=== PATIENT | female | born 1980 | race Caucasian/White ===

== ENCOUNTER 2017-06-05 15:58 | Emergency (ER) | payer OTHER ==
[~2017-06-05] VITALS: Ht 160 cm; Wt 60.0 kg
[~2017-06-05 15:58] MED LIST: DOXY100T PO; LORT5TAB PO; SULF1TAB47 PO
[2017-06-05 16:01] VITALS: BP 126/68; PULSE 86; RESP 14; TEMP 98.5; O2SAT 100
[2017-06-05 16:39] VITALS: BP 118/72; PULSE 94; RESP 19; TEMP 98.2; O2SAT 100
--- NOTE | 2017-06-05 17:00 | PD ---
HPI Chief Complaint: Anxiety Time Seen by Provider: 16:40 Travel History International Travel<30 days: No Contact w/Intl Traveler<30days: No Traveled to known affect area: No History of Present Illness HPI 37-year-old female presents voluntarily for psychiatric evaluation secondary to anxiety and having a panic attack for the past 2 hours. She also reports chest pain and shortness of breath that has been intermittent for the past couple days. Reports nausea and diarrhea for the past 3 days. Denies fever, cough, recent illness. She is also complaining of dysuria. Denies suicidal or homicidal ideations. Reports injecting Dilaudid 3-4 days ago. Denies other illicit drug use. Denies EtOH. Reports feeling emotional and paranoid and feels like somebody is after her. Has history of anxiety and used to take Ativan and Xanax. She has history of seizures and used to take Lamictal. Has not taken Lamictal for at least a year. Her last seizure was 5-6 months ago. No known allergies. No other medical complaints. No other modifying factors or associated signs and symptoms. PFSH Past Medical History Diminished Hearing: No Seizures: Yes Tetanus Vaccination: < 5 Years Influenza Vaccination: No ?: Not LMP: 2 WEEKS AGO Tubal Ligation: Yes Past Surgical History Surgical History: No Previous Surgery Social History Alcohol Use: No Tobacco Use: Yes Substance Use: Yes (DILAUDID) Allergies-Medications (Allergen,Severity, Reaction): Coded Allergies: No Known Allergies (Verified Adverse Reaction, Unknown, 06/05/17) Reported Meds & Prescriptions Reported Meds & Active Scripts Active Macrobid (Nitrofurantoin Monohydrate Macrocrystals) 100 Mg Capsule 100 Mg PO BID 7 Days Review of Systems Except as stated in HPI: all other systems reviewed are Neg Physical Exam Narrative GENERAL: Well-nourished, well-developed female patient, in no acute distress; sleeping comfortably in bed prior to evaluation SKIN: Warm and dry. HEAD: Atraumatic. Normocephalic. EYES: Pupils equal and round. No scleral icterus. No injection or drainage. ENT: Mucosa pink and moist. Airway patent. NECK: Trachea midline. CARDIOVASCULAR: Regular rate and rhythm. No murmur appreciated. RESPIRATORY: No accessory muscle use. Breath sounds clear and equal bilaterally. No retractions or tachypnea. GASTROINTESTINAL: Abdomen soft, non-tender, nondistended. Bowel sounds active 4 quadrants. Nonrigid. No guarding. MUSCULOSKELETAL: No obvious deformities. No clubbing. No cyanosis. No edema. NEUROLOGICAL: Awake and alert. Oriented 3. No obvious cranial nerve deficits. Motor grossly within normal limits. Normal speech. PSYCHIATRIC: Appropriate mood and affect; insight and judgment normal. Data Data Last Documented VS Vital Signs Date Time Temp Pulse Resp B/P (MAP) Pulse Ox O2 Delivery O2 Flow Rate FiO2 06/06/17 11:16 06/06/17 06:00 97.5 79 100 Room Air 06/06/17 02:43 15 Orders Orders Electrocardiogram (06/05/17 17:) Basic Metabolic Panel (Bmp) (06/05/17 17:) Ckmb (Isoenzyme) Profile (06/05/17 17:) Complete Blood Count With Diff (06/05/17 17:) Magnesium (Mg) (06/05/17 17:) Prothrombin Time / Inr (Pt) (06/05/17 17:) Act Partial Throm Time (Ptt) (06/05/17 17:) Troponin I (06/05/17 17:) Chest, Single Ap (06/05/17 17:) Ecg Monitoring (06/05/17 17:01) Iv Access Insert/Monitor (06/05/17 17:) Oximetry (06/05/17 17:) Sodium Chloride 0.9% Flush (Ns Flush) (06/05/17 17:15) Urinalysis - C+S If Indicated (06/05/17 17:) Ed Urine Pregnancytest Poc (06/05/17 17:) Psych Screen (06/05/17 17:) Drug Screen, Random Urine (06/05/17 17:) Alcohol (Ethanol) (06/05/17 17:01) Salicylates (Aspirin) (06/05/17 17:01) Tylenol (Acetaminophen) (06/05/17 17:01) Vascular Access Team Consult/P PRN (06/05/17 17:50) Vascular Poc Ultrasound (06/05/17 ) CKMB (06/05/17 18:40) CKMB% (06/05/17 18:40) Potassium Chloride (Kcl) (06/05/17 20:30) Urine Culture (06/05/17 21:05) Nitrofurantoin Monohyd Macrocr (Macrobid (06/06/17 01:45) Diet Regular Basic (06/06/17 Breakfast) Ed Discharge Order (06/06/17 10:40) Ibuprofen (Motrin) (06/06/17 10:45) Labs Laboratory Tests Test 06/05/17 18:40 06/05/17 21:05 White Blood Count 5.5 TH/MM3 Red Blood Count 4.54 MIL/MM3 Hemoglobin 12.4 GM/DL Hematocrit 36.2 % Mean Corpuscular Volume 79.8 FL Mean Corpuscular Hemoglobin 27.4 PG Mean Corpuscular Hemoglobin Concent 34.3 % Red Cell Distribution Width 13.6 % Platelet Count 213 TH/MM3 Mean Platelet Volume 6.9 FL Neutrophils (%) (Auto) 61.2 % Lymphocytes (%) (Auto) 27.4 % Monocytes (%) (Auto) 8.0 % Eosinophils (%) (Auto) 1.6 % Basophils (%) (Auto) 1.8 % Neutrophils # (Auto) 3.4 TH/MM3 Lymphocytes # (Auto) 1.5 TH/MM3 Monocytes # (Auto) 0.4 TH/MM3 Eosinophils # (Auto) 0.1 TH/MM3 Basophils # (Auto) 0.1 TH/MM3 CBC Comment DIFF FINAL Differential Comment Prothrombin Time 10.4 SEC Prothromb Time International Ratio 1.0 RATIO Activated Partial Thromboplast Time 32.1 SEC Blood Urea Nitrogen 8 MG/DL Creatinine 0.73 MG/DL Random Glucose 96 MG/DL Calcium Level 8.8 MG/DL Magnesium Level 1.9 MG/DL Sodium Level 137 MEQ/L Potassium Level 3.0 MEQ/L Chloride Level 103 MEQ/L Carbon Dioxide Level 27.6 MEQ/L Anion Gap 6 MEQ/L Estimat Glomerular Filtration Rate 91 ML/MIN Total Creatine Kinase 157 U/L Creatine Kinase MB 3.6 NG/ML Troponin I LESS THAN 0.02 NG/ML Salicylates Level 3.0 MG/DL Acetaminophen Level LESS THAN 2.0 MCG/ML Ethyl Alcohol Level LESS THAN 3 MG/DL Urine Color YELLOW Urine Turbidity HAZY Urine pH 6.5 Urine Specific [place] 1.008 Urine Protein TRACE mg/dL Urine Glucose (UA) NEG mg/dL Urine Ketones 10 mg/dL Urine Occult Blood NEG Urine Nitrite NEG Urine Bilirubin NEG Urine Urobilinogen LESS THAN 2.0 MG/DL Urine Leukocyte Esterase LARGE Urine RBC 2 /hpf Urine WBC 56 /hpf Urine Squamous Epithelial Cells 1 /hpf Urine Bacteria OCC /hpf Urine Mucus FEW /lpf Microscopic Urinalysis Comment CULTURE INDICATED Urine Opiates Screen NEG Urine Barbiturates Screen NEG Urine Amphetamines Screen POS Urine Benzodiazepines Screen NEG Urine Cocaine Screen POS Urine Cannabinoids Screen NEG MDM Medical Decision Making Medical Screen Exam Complete: Yes Emergency Medical Condition: Yes Medical Record Reviewed: Yes Differential Diagnosis Anxiety, panic attacks, nonspecific chest pain, drug-induced chest pain, medical clearance for psychiatric evaluation, malingering Narrative Course 37-year-old female presents voluntarily for psychiatric evaluation. She has history of anxiety and is complaining of a panic attack. She is complaining of chest pain and shortness of breath intermittently for the past couple days. CBC , BMP, troponin, CK-MB, magnesium, chest x-ray, EKG, tox screen, alcohol screen , urinalysis, UPT, psych screen ordered. 1938: EKG with normal sinus rhythm: No ST elevation or depression; reviewed by Dr. Linder. 1926: CBC unremarkable. Coags unremarkable. Calcium 3.0. 40 meq oral potassium ordered. Troponin less than 0.02. CK-MB 3.6. Magnesium 1.9. Chest x-ray concludes: Chest X-Ray 06/05/17 1701 Signed Impressions: Service Date/Time: May 17:19 - CONCLUSION: No acute disease. Umer Ventura MD 2100: UA and drug screen pending. Dr. Linder assumed patient care at this time. See her not e for final patient disposition. Scripts Nitrofurantoin Monohydrate Macrocrystals (Macrobid) 100 Mg Capsule 100 MG PO BID for Infection for 7 Days, #14 CAP 0 Refills Prov: Vanita Linder DO 06/06/17 Ama Napoles Jun 05, 2017 17:00
[2017-06-05] MEDS ORDERED: SODIUM CHLORIDE 0.9% FLUSH 10 ML FLUSH IVF PRN (17:15)
[2017-06-05 17:20] VITALS: BP 118/72; PULSE 94; RESP 19; TEMP 98.2; O2SAT 100
--- NOTE | 2017-06-05 17:32 | RADRPT ---
EXAM DATE/TIME: 06/05/2017 17:19 [facility] COMPARISON: No previous studies available for comparison. INDICATIONS : Chest pain MEDICAL HISTORY : Panic attacks SURGICAL HISTORY : None. ENCOUNTER: Initial ACUITY: 4 - 6 days PAIN SCORE: 2/10 LOCATION: chest FINDINGS: A single view of the chest demonstrates the lungs to be symmetrically aerated without evidence of mas s, infiltrate or effusion. The cardiomediastinal contours are unremarkable. Osseous structures are intact. CONCLUSION: No acute disease. Umer Ventura MD on June 05, 2017 at 17:29 Board Certified Radiologist. This report was verified electronically.
[2017-06-05 19:12] LABS: AUTOMATED NEUTROPHIL # 3.4 TH/MM3 (1.8-7.7); BASOPHIL # 0.1 TH/MM3 (0-0.2); BASOPHIL % 1.8 % (0.0-2.0); EOSINOPHIL # 0.1 TH/MM3 (0-0.4); EOSINOPHIL % 1.6 % (0.0-4.0); HEMATOCRIT 36.2 % (35.0-46.0); HEMO FLAGS DIFF FINAL; LYMPH % 27.4 % (9.0-44.0); LYMPHOCYTE # 1.5 TH/MM3 (1.0-4.8); MEAN CELL VOLUME 79.8 FL (80.0-100.0); MEAN CORPUSCULAR HEMOGLOBIN 27.4 PG (27.0-34.0); MEAN CORPUSCULAR HGB CONC 34.3 % (32.0-36.0); NEUT % 61.2 % (16.0-70.0); PLATELET COUNT 213 TH/MM3 (150-450); RED BLOOD COUNT 4.54 MIL/MM3 (4.00-5.30); RED CELL DISTRIBUTION WIDTH 13.6 % (11.6-17.2); WHITE BLOOD COUNT 5.5 TH/MM3 (4.0-11.0)
[2017-06-05 19:36] LABS: ANION GAP 6 MEQ/L (5-15); BICARBONATE 27.6 MEQ/L (21.0-32.0); BLOOD UREA NITROGEN 8 MG/DL (7-18); CHLORIDE 103 MEQ/L (98-107); GLOMERULAR FILTRATION RATE 91 ML/MIN (>89); MAGNESIUM 1.9 MG/DL (1.5-2.5); SODIUM (NA) 137 MEQ/L (136-145)
[2017-06-05 19:40] LABS: CREATINE KINASE 157 U/L (26-192)
[2017-06-05 19:47] LABS: ALCOHOL LESS THAN 3 MG/DL (0-5)
[2017-06-05 19:48] LABS: ACETAMINOPHEN LESS THAN 2.0 MCG/ML (10.0-30.0)
[2017-06-05 20:00] LABS: CKMB 3.6 NG/ML (0.5-3.6)
[2017-06-05 20:01] LABS: APTT (PATIENT) 32.1 SEC (24.3-30.1); PROTHROMBIN TIME - PATIENT 10.4 SEC (9.8-11.6)
[2017-06-05] MEDS ORDERED: POTASSIUM CHLORIDE 20 MEQ CONTROLLED RELEASE TAB PO ONE (20:30)
[2017-06-05 22:06] LABS: BACTERIA, URINE OCC /hpf; BLOOD, URINE NEG (NEG); COMMENT (UR) CULTURE INDICATED; CULTURE IF INDICATED CULTURE INDICATED; GLUCOSE,URINE NEG (NEG); KETONE, URINE 10 mg/dL (NEG); MUCUS URINE FEW /lpf (OCC); NITRITE,URINE NEG (NEG); PH, URINE 6.5 (5.0-8.5); SQUAMOUS EPITHELIAL CELL URINE 1 /hpf (0-5); URINE COLOR YELLOW (YELLW/STRAW)
[2017-06-06] MEDS ORDERED: MACR100C2 PO (01:37)
[2017-06-06] MEDS ORDERED: NITROFURANTOIN MONOHYD MACROCR 100 MG CAP PO ONE (01:45)
[2017-06-06 02:43] VITALS: BP 168/70; PULSE 81; RESP 15; TEMP 97.5; O2SAT 100
[2017-06-06 06:00] VITALS: BP 105/50; PULSE 79; TEMP 97.5; O2SAT 100
--- NOTE | 2017-06-06 10:39 | PD ---
Physical Exam Narrative I was asked by the psych department to discharge patient after patient was evaluated by psychiatrist. Patient was previously medically cleared by previous provider. Please see their documentation for full H&P. Patient denies any homicidal or suicidal ideations. Denies any medical concerns at this time. Data Data Last Documented VS Vital Signs Date Time Temp Pulse Resp B/P (MAP) Pulse Ox O2 Delivery O2 Flow Rate FiO2 06/06/17 11:16 06/06/17 06:00 97.5 79 100 Room Air 06/06/17 02:43 15 Orders Orders Electrocardiogram (06/05/17 17:) Basic Metabolic Panel (Bmp) (06/05/17 17:01) Ckmb (Isoenzyme) Profile (06/05/17 17:) Complete Blood Count With Diff (06/05/17:) Magnesium (Mg) (06/05/17 17:) Prothrombin Time / Inr (Pt) (06/05/17 17:) Act Partial Throm Time (Ptt) (06/05/17 17:) Troponin I (06/05/17 17:) Chest, Single Ap (06/05/17 17:) Ecg Monitoring (06/05/17 17:01) Iv Access Insert/Monitor (06/05/17 17:) Oximetry (06/05/17 17:) Sodium Chloride 0.9% Flush (Ns Flush) (06/05/17 17:15) Urinalysis - C+S If Indicated (06/05/17 17:) Ed Urine Pregnancytest Poc (06/05/17 17:01) Psych Screen (06/05/17 17:) Drug Screen, Random Urine (06/05/17 17:) Alcohol (Ethanol) (06/05/17 17:01) Salicylates (Aspirin) (06/05/17 17:01) Tylenol (Acetaminophen) (06/05/17 17:01) Vascular Access Team Consult/P PRN (06/05/17 17:50) Vascular Poc Ultrasound (06/05/17 ) CKMB (06/05/17 18:40) CKMB% (06/05/17 18:40) Potassium Chloride (Kcl) (06/05/17 20:30) Urine Culture (06/05/17 21:05) Nitrofurantoin Monohyd Macrocr (Macrobid (06/06/17 01:45) Diet Regular Basic (06/06/17 Breakfast) Ed Discharge Order (06/06/17 10:40) Ibuprofen (Motrin) (06/06/17 10:45) Diet Regular Basic (06/06/17 Lunch) Labs Laboratory Tests Test 06/05/17 18:40 06/05/17 21:05 White Blood Count 5.5 TH/MM3 Red Blood Count 4.54 MIL/MM3 Hemoglobin 12.4 GM/DL Hematocrit 36.2 % Mean Corpuscular Volume 79.8 FL Mean Corpuscular Hemoglobin 27.4 PG Mean Corpuscular Hemoglobin Concent 34.3 % Red Cell Distribution Width 13.6 % Platelet Count 213 TH/MM3 Mean Platelet Volume 6.9 FL Neutrophils (%) (Auto) 61.2 % Lymphocytes (%) (Auto) 27.4 % Monocytes (%) (Auto) 8.0 % Eosinophils (%) (Auto) 1.6 % Basophils (%) (Auto) 1.8 % Neutrophils # (Auto) 3.4 TH/MM3 Lymphocytes # (Auto) 1.5 TH/MM3 Monocytes # (Auto) 0.4 TH/MM3 Eosinophils # (Auto) 0.1 TH/MM3 Basophils # (Auto) 0.1 TH/MM3 CBC Comment DIFF FINAL Differential Comment Prothrombin Time 10.4 SEC Prothromb Time International Ratio 1.0 RATIO Activated Partial Thromboplast Time 32.1 SEC Blood Urea Nitrogen 8 MG/DL Creatinine 0.73 MG/DL Random Glucose 96 MG/DL Calcium Level 8.8 MG/DL Magnesium Level 1.9 MG/DL Sodium Level 137 MEQ/L Potassium Level 3.0 MEQ/L Chloride Level 103 MEQ/L Carbon Dioxide Level 27.6 MEQ/L Anion Gap 6 MEQ/L Estimat Glomerular Filtration Rate 91 ML/MIN Total Creatine Kinase 157 U/L Creatine Kinase MB 3.6 NG/ML Troponin I LESS THAN 0.02 NG/ML Salicylates Level 3.0 MG/DL Acetaminophen Level LESS THAN 2.0 MCG/ML Ethyl Alcohol Level LESS THAN 3 MG/DL Urine Color YELLOW Urine Turbidity HAZY Urine pH 6.5 Urine Specific [place] 1.008 Urine Protein TRACE mg/dL Urine Glucose (UA) NEG mg/dL Urine Ketones 10 mg/dL Urine Occult Blood NEG Urine Nitrite NEG Urine Bilirubin NEG Urine Urobilinogen LESS THAN 2.0 MG/DL Urine Leukocyte Esterase LARGE Urine RBC 2 /hpf Urine WBC 56 /hpf Urine Squamous Epithelial Cells 1 /hpf Urine Bacteria OCC /hpf Urine Mucus FEW /lpf Microscopic Urinalysis Comment CULTURE INDICATED Urine Opiates Screen NEG Urine Barbiturates Screen NEG Urine Amphetamines Screen POS Urine Benzodiazepines Screen NEG Urine Cocaine Screen POS Urine Cannabinoids Screen NEG MDM Supervised Visit with ELDA: No Narrative Course Patient in no obvious distress upon re-evaluation. Instructions and recommendations were detailed in discharge paperwork. Patient ambulated without difficulty out of ED at discharge. Diagnosis Primary Impression: UTI (urinary tract infection) Qualified Codes: N39.0 - Urinary tract infection, site not specified Additional Impressions: Hypokalemia Substance abuse Referrals: [facility] Patient Instructions: General Instructions, Hypokalemia (ED), Polysubstance Abuse (ED), Urinary Tract Infection in Women (ED) Additional Instruction: Follow-up with your primary care physician next week for reevaluation. Follow- up with Obed Taylor today. Take all medication as prescribed. Return to the emergency department if symptoms get worse. Med/Other Pt SpecificInfo: Prescription(s) given Scripts Nitrofurantoin Monohydrate Macrocrystals (Macrobid) 100 Mg Capsule 100 MG PO BID for Infection for 7 Days, #14 CAP 0 Refills Prov: Vanita Linder DO 06/06/17 Disposition: 01 DISCHARGE HOME Condition: Stable Guillermo Arechiga Jun 06, 2017 10:39
--- NOTE | 2017-06-06 10:41 | PD ---
History of Present Illness Chief Complaint: Anxiety Time Seen by Provider: 10:00 Travel History International Travel<30 Days: No Contact w/Intl Traveler<30days: No Known affected area: No Legal Status Legal Status: Voluntary History of Present Illness: Patient here voluntarily after presenting for panic attack. Patient admits to IV drug use with dialogue noted. She is also positive for amphetamines and cocaine. She is wanting to go to [facility] for treatment and has an appointment this morning. She denies any suicidal or homicidal ideation, plan or intent. She is verbally cierra for safety and she is competent to do so. She has no psychotic symptoms and no cognitive deficits at this time. She is somewhat tearful as she is having relationship difficulties with her boyfriend. PFSH Past Medical History Diminished Hearing: No Seizures: Yes Tetanus Vaccination: < 5 Years Influenza Vaccination: No ?: Not LMP: 2 WEEKS AGO Tubal Ligation: Yes Past Surgical History Surgical History: No Previous Surgery Psychiatric History Psychiatric History Hx Psychiatric Treatment: Patient denies a history of inpatient and outpatient psychiatric treatment. Patient's primary problem appears to be drug abuse. She does not show significant objective clinical evidence of other major mental illness at this time. History of Inpatient Treatment: No Guns or firearms in home: No Social History Hx Alcohol Use: No Hx Tobacco Use: Yes Hx Substance Use: Yes (dilaudid, meth) Substance Use Type: Amphetamines-Stimulants, Nicotine/Cigarettes, Cocaine, Other Hx of Substance Use Treatment: No Allergies-Medications (Allergen,Severity, Reaction): Coded Allergies: No Known Allergies (Verified Adverse Reaction, Unknown, 06/05/17) Reported Meds & Prescriptions Reported Meds & Active Scripts Active Macrobid (Nitrofurantoin Monohydrate Macrocrystals) 100 Mg Capsule 100 Mg PO BID 7 Days Review of Systems Psychiatric: COMPLAINS OF: Anxiety, Mood changes Except as stated in HPI: all other systems reviewed are Neg Mental Status Examination Appearance: Appropriate Consciousness: Alert Orientation: x4 Motor Activity: Normal gait Speech: Unremarkable Language: Adequate Fund of Knowledge: Adequate Attention and Concentration: Adequate Memory: Unremarkable Mood: Sad Affect: Sad Thought Process & Associations: Intact Thought Content: Appropriate Hallucination Type: None Delusion Type: None Suicidal Ideation: No Suicidal Plan: No Suicidal Intention: No Homicidal Ideation: No Homicidal Plan: No Homicidal Intention: No Insight: Adequate Judgment: Adequate MDM Medical Decision Making Medical Record Reviewed: Yes Assessment/Plan Patient interviewed at bedside. Medical record reviewed. Case discussed with upper caser Chadd. Patient wants to go voluntarily to [facility] for treatment of drug abuse. She does not meet Bland act criteria and she does not meet criteria for involuntary psychiatric hospitalization. Orders Orders Electrocardiogram (06/05/17 17:) Basic Metabolic Panel (Bmp) (06/05/17 17:) Ckmb (Isoenzyme) Profile (06/05/17 17:) Complete Blood Count With Diff (06/05/17:) Magnesium (Mg) (06/05/17 17:) Prothrombin Time / Inr (Pt) (06/05/17 17:) Act Partial Throm Time (Ptt) (06/05/17 17:) Troponin I (06/05/17 17:) Chest, Single Ap (06/05/17 17:) Ecg Monitoring (06/05/17 17:) Iv Access Insert/Monitor (06/05/17 17:) Oximetry (06/05/17 17:) Sodium Chloride 0.9% Flush (Ns Flush) (06/05/17 17:15) Urinalysis - C+S If Indicated (06/05/17 17:) Ed Urine Pregnancytest Poc (06/05/17 17:01) Psych Screen (06/05/17 17:) Drug Screen, Random Urine (06/05/17 17:01) Alcohol (Ethanol) (06/05/17 17:01) Salicylates (Aspirin) (06/05/17 17:01) Tylenol (Acetaminophen) (06/05/17 17:01) Vascular Access Team Consult/P PRN (06/05/17 17:50) Vascular Poc Ultrasound (06/05/17 ) CKMB (06/05/17 18:40) CKMB% (06/05/17 18:40) Potassium Chloride (Kcl) (06/05/17 20:30) Urine Culture (06/05/17 21:05) Nitrofurantoin Monohyd Macrocr (Macrobid (06/06/17 01:45) Diet Regular Basic (06/06/17 Breakfast) Results Vital Signs Date Time Temp Pulse Resp B/P (MAP) Pulse Ox O2 Delivery O2 Flow Rate FiO2 06/06/17 06:00 97.5 79 105/50 (68) 100 Room Air 06/06/17 02:43 97.5 81 15 168/70 (102) 100 Room Air 06/06/17 02:05 06/05/17 17:20 98.2 94 19 118/72 (87) 100 Room Air 06/05/17 16:39 18 06/05/17 16:39 98.2 94 19 118/72 (87) 100 Room Air 06/05/17 16:01 98.5 86 14 126/68 (87) 100 Laboratory Tests Test 06/05/17 18:40 06/05/17 21:05 White Blood Count 5.5 Red Blood Count 4.54 Hemoglobin 12.4 Hematocrit 36.2 Mean Corpuscular Volume 79.8 Mean Corpuscular Hemoglobin 27.4 Mean Corpuscular Hemoglobin Concent 34.3 Red Cell Distribution Width 13.6 Platelet Count 213 Mean Platelet Volume 6.9 Neutrophils (%) (Auto) 61.2 Lymphocytes (%) (Auto) 27.4 Monocytes (%) (Auto) 8.0 Eosinophils (%) (Auto) 1.6 Basophils (%) (Auto) 1.8 Neutrophils # (Auto) 3.4 Lymphocytes # (Auto) 1.5 Monocytes # (Auto) 0.4 Eosinophils # (Auto) 0.1 Basophils # (Auto) 0.1 CBC Comment DIFF FINAL Differential Comment Prothrombin Time 10.4 Prothromb Time International Ratio 1.0 Activated Partial Thromboplast Time 32.1 Blood Urea Nitrogen 8 Creatinine 0.73 Random Glucose 96 Calcium Level 8.8 Magnesium Level 1.9 Sodium Level 137 Potassium Level 3.0 Chloride Level 103 Carbon Dioxide Level 27.6 Anion Gap 6 Estimat Glomerular Filtration Rate 91 Total Creatine Kinase 157 Creatine Kinase MB 3.6 Troponin I LESS THAN 0.02 Salicylates Level 3.0 Acetaminophen Level LESS THAN 2.0 Ethyl Alcohol Level LESS THAN 3 Urine Color YELLOW Urine Turbidity HAZY Urine pH 6.5 Urine Specific [place] 1.008 Urine Protein TRACE Urine Glucose (UA) NEG Urine Ketones 10 Urine Occult Blood NEG Urine Nitrite NEG Urine Bilirubin NEG Urine Urobilinogen LESS THAN 2.0 Urine Leukocyte Esterase LARGE Urine RBC 2 Urine WBC 56 Urine Squamous Epithelial Cells 1 Urine Bacteria OCC Urine Mucus FEW Microscopic Urinalysis Comment CULTURE INDICATED Urine Opiates Screen NEG Urine Barbiturates Screen NEG Urine Amphetamines Screen POS Urine Benzodiazepines Screen NEG Urine Cocaine Screen POS Urine Cannabinoids Screen NEG Date/Time Source Procedure Growth Status 06/05/17 21:05 Urine Clean Catch Urine Culture Pending Worksheet Diagnosis Primary Impression: Cocaine abuse Prescriptions Nitrofurantoin Monohydrate Macrocrystals (Macrobid) 100 Mg Capsule 100 MG PO BID for Infection for 7 Days, #14 CAP 0 Refills Prov: Vanita Linder DO 06/06/17 Justice Rivas MD Jun 06, 2017 10:41
[2017-06-06] MEDS ORDERED: IBUPROFEN 600 MG TAB PO ONE (10:45)
--- NOTE | 2017-06-06 15:55 | EKG ---
Date Performed: 06/05/2017 Time Performed: 17:31:05 PTAGE: 37 years EKG: Sinus rhythm NORMAL ECG NO PREVIOUS TRACING DOCTOR: Lizzy Jordan Interpretating Date/Time 06/06/2017 15:53:31
== END 2017-06-06 11:30 | disposition home or self-care (01) ==
LOC: NEPD 15:58 → NEPJ 06-06 11:30
DX: F14.10 Cocaine abuse, uncomplicated (principal); N39.0 Urinary tract infection, site not specified; B96.20 Unspecified Escherichia coli [E. coli] as the cause of diseases classified elsewhere; E87.6 Hypokalemia; R07.9 Chest pain, unspecified; R06.02 Shortness of breath; Z72.0 Tobacco use
CPT/HCPCS: 71010; 80048; 80307; 81001; 82550; 82552; 83735; 84484; 84703; 85025; 85610; 85730; 87077; 87086; 87186; 93005; 99285